=== PATIENT | male | born 2000 | race African-American/Black ===

== ENCOUNTER 2024-07-16 11:54 | Emergency (ER) | payer OTHER ==
[~2024-07-16] VITALS: Ht 170.2 cm; Wt 83.7 kg
[2024-07-16 12:01] VITALS: TEMP 97.4
[2024-07-16 13:29] LABS: KETONE, URINE AUTO RFX NEGATIVE (NEGATIVE); LEUKOCYTE ESTERASE UR AUTO RFX NEGATIVE (NEGATIVE); NITRITE, URINE AUTO RFX NEGATIVE (NEGATIVE); RBC, URINE AUTO RFX 0 /HPF (0-3); SQUAM EPITHELIAL CELL UR AURFX 0 /HPF (0-6); WBC, URINE AUTO RFX 1 /HPF (0-3)
[2024-07-16 14:34] LABS: Trichomonas vaginalis (AMP) NOT DETECTED (NEGATIVE)
[2024-07-16 14:58] LABS: GC DNA AMPLIFICATION NEGATIVE (NEGATIVE)
[2024-07-16] MEDS ORDERED: DOXY100T PO (16:45)
[2024-07-16] MEDS: DOXYCYCLINE HYCLATE 100MG TABLET PO ONE (16:56)
[2024-07-16 16:57] VITALS: BP 146/74; O2SAT 100
== END 2024-07-16 16:59 | disposition home or self-care (01) ==
LOC: M ED 11:54
DX: A74.9 Chlamydial infection, unspecified (principal); F12.10 Cannabis abuse, uncomplicated